=== PATIENT | male | born 1995 | race Caucasian/White ===

== ENCOUNTER 2017-12-29 04:54 | Day surgery (SDC) | payer OTHER ==
[2017-12-28 19:14] VITALS: BMI 25.4
[2017-12-29] MEDS ORDERED: DEXAMETHASONE SOD PHOSPHATE 4 MG/1 ML VIAL ONE (07:08)
[2017-12-29] MEDS ORDERED: PROPOFOL 20 ML ONE ×2 (07:09→07:50)
[2017-12-29] MEDS ORDERED: SUCCINYLCHOLINE CHLORIDE 200 MG/10 ML VIAL ONE ×2 (07:09)
[2017-12-29] MEDS ORDERED: MIDAZOLAM HCL 2 MG/2 ML SINGLE DOSE VIAL ONE (07:09)
[2017-12-29] MEDS ORDERED: LIDOCAINE HCL 1%, 10 MG/ML (20ML VIAL) ONE (07:39)
[2017-12-29] MEDS ORDERED: ceFAZolin SODIUM 1 GM VIAL IVPB ONE (07:46)
[2017-12-29] MEDS ORDERED: LIDOCAINE HCL 1%, 10 MG/ML (20ML VIAL) INF ONE (08:00)
[2017-12-29] MEDS ORDERED: IBUPROFEN 800 MG/8 ML IJ IVPB PRN (08:03)
[2017-12-29] MEDS ORDERED: oxyCODONE HCL 5 MG TABLET PO PRN ×2 (08:03)
[2017-12-29] MEDS ORDERED: ONDANSETRON 4 MG/2 ML VIAL IVPUSH PRN (08:03)
[2017-12-29] MEDS ORDERED: PROMETHAZINE HCL 25 MG/1 ML VIAL IVPB PRN (08:03)
[2017-12-29] MEDS ORDERED: LACTATED RINGERS SOLUTION 1,000 ML IV SCH (08:15)
--- NOTE | 2017-12-29 08:49 | HP ---
History & Physical Update - History History: No Change - Physical Physical: No Change - Assessment Assessment: No Change - Plan Plan: No Change
[2017-12-29] MEDS ORDERED: DESFLURANE GAS 240 ML BOTTLE IH ONE (08:52)
[2017-12-29] MEDS ORDERED: IBUPROFEN 800 MG/8 ML IJ IVPB ONE (09:05)
--- NOTE | 2017-12-29 09:13 | OP ---
DATE OF OPERATION: 12/29/2017 PREOPERATIVE DIAGNOSIS: Bilateral breast masses. POSTOPERATIVE DIAGNOSIS: Bilateral breast masses. PROCEDURE: Excision of bilateral breast masses. SURGEON: Asia Naylor MD ANESTHESIA: General. ESTIMATED BLOOD LOSS: Minimal. COMPLICATIONS: None. DISPOSITION: Stable at the end of procedure. patient has palpable masses behind the nipple-areolar complex bilateral that were persistently enlarging, and recommendation was an excision of both of these. The procedure was discussed with him. All the questions answered. PROCEDURE IN DETAIL: Patient was brought to [facility] in [place] and taken into the operating room. Adequate induction of general anesthesia and IV antibiotics, both breasts were prepped and draped in the usual sterile fashion. First the right breast excision was performed. The area was anesthetized with 1 % lidocaine without epinephrine. Periareolar incision was made in the inferior right breast and carried down laterally, and the entire mass behind the nipple-areolar complex was removed, and this was sent as the right breast mass. Hemostasis was assured with electrocautery, then incision was closed in a routine fashion with interrupted 3-0 Vicryl, running 4-0 Biosyn. A sterile dressing of Tegaderm, 4 x 4 was applied. Next, the left breast excision of mass was performed. The area was anesthetized with 1% lidocaine without epinephrine. Periareolar incision was made in the inferior left breast and carried out laterally, and the entire mass behind the left nipple- areolar complex was removed and sent as the left breast mass for permanent section. Hemostasis was assured with electrocautery. The incision was closed in a routine fashion with interrupted 3-0 Vicryl, running 4-0 Biosyn. A sterile dressing of Tegaderm and 4 x 4's applied. He tolerated the procedure well, was extubated in the operating room and taken to recovery in good condition. Carmen [id number] MTDD
[2017-12-29 11:25] VITALS: BP 116/52; PULSE 62; TEMP 98.1
--- NOTE | 2018-01-01 14:44 | PATH ---
Surgical Pathology Report Patient Name: NEHEMIAH DODGE Med. Rec. #: [id number] /Age/Gender: 1995 (Age: 22) / M Account: [id number] Location: [facility] SUR[facility]ICAL Taken: 12/29/2017 Received: 12/29/2017 Reported: 01/01/2018 Physicians: Asia Naylor M.D. Specimen(s) Received A: RIGHT BREAST MASS B: LEFT BREAST MASS Clinical History Rule out gynecomastia Final Diagnosis A. RIGHT BREAST MASS, EXCISION: BENIGN BREAST TISSUE CONSISTENT WITH GYNECOMASTIA. B. LEFT BREAST MASS, EXCISION: BENIGN BREAST TISSUE CONSISTENT WITH GYNECOMASTIA. Electronically Signed Sebas Mitchell M.D. Gross Description A. Received in formalin labeled "right breast mass," is a 6.3 x 6.0 x 3.1 cm irregular, unoriented portion of fibroadipose tissue. There is no needle localization wire present. There is no skin or nipple present. The specimen is inked blue and serially sectioned. Sectioning reveals abundant dense, white fibrous tissue. No definitive mass is identified. 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 Time to formalin fixation: 5 minutes Total formalin fixation time: Approximately 10 hours. B. Received in formalin labeled "left breast mass," is a 6.0 x 5.0 x 2.7 cm irregular, unoriented portion of fibroadipose tissue. There is no needle localization wire present. There is no skin or nipple present. The specimen is inked blue and serially sectioned. Sectioning reveals abundant dense, white fibrous tissue. No definitive mass is identified. 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 Time to formalin fixation: 9 minutes Total formalin fixation time: Approximately 9 hours. 12/29/201712/29/2017
== END 2017-12-29 10:55 | disposition home or self-care (01) ==
LOC: JASU-SURG 04:54
PROVIDERS: ATTEND Surgery
PROC: 0HBV0ZX Excision of Bilateral Breast, Open Approach, Diagnostic (ICD-10-PCS; principal; 2017-12-29 07:30)
DX: N62 Hypertrophy of breast (principal)
CPT/HCPCS: 88305-TC; 94760